=== PATIENT | male | born 1995 | race Caucasian/White ===

== ENCOUNTER → 2021-12-05 | Outpatient (CLI) | payer OTHER | END | disposition home or self-care (01) | LOC: COVID19 17:14 | PROVIDERS: ATTEND Family Medicine | DX: U07.1 COVID-19 (principal) ==

== ENCOUNTER → 2022-09-23 | Outpatient (CLI) | payer OTHER | END | disposition home or self-care (01) | LOC: RAD 16:54 | PROVIDERS: ATTEND Family Medicine | DX: M25.561 Pain in right knee (principal) ==

== ENCOUNTER 2024-11-13 08:31 | Emergency (ER) | payer BC ==
[2024-11-13] MEDS ORDERED: DEXAMETHASONE6 MG PO (09:48)
[2024-11-13] MEDS ORDERED: DEXAMETHASONE 4 MG TAB PO ONE (09:50)
== END 2024-11-13 09:53 | disposition home or self-care (01) ==
LOC: ED 08:31
DX: U07.1 COVID-19 (principal); Z91.040 Latex allergy status

== ENCOUNTER 2024-12-15 07:17 | Emergency (ER) | payer BC ==
[~2024-12-15] VITALS: Ht 167.6 cm; Wt 67.3 kg
[~2024-12-15 07:17] MED LIST: DEXAMETHASONE6 MG PO
== END 2024-12-15 09:12 | disposition home or self-care (01) ==
LOC: ED 07:17
DX: Z00.00 Encounter for general adult medical examination without abnormal findings (principal); R05.9 Cough, unspecified; J34.89 Other specified disorders of nose and nasal sinuses